=== PATIENT | female | born 2000 | race Caucasian/White ===

== ENCOUNTER 2019-10-01 10:18 | Emergency (ER) | payer BC, SELFPAY ==
[2019-10-01 10:30] VITALS: BP 122/75; PULSE 86; RESP 16; TEMP 36.9; O2SAT 99
--- NOTE | 2019-10-01 10:46 | ED.URI ---
HPI - URI/Sore Throat General Chief Complaint: Upper Respiratory Infection Stated Complaint: SORE THROAT/[place]/EARACHE Time Seen by Provider: 10/01/19 10:46 Source: patient Mode of arrival: ambulatory Limitations: no limitations History of Present Illness HPI Narrative: A 19 y/o female, who is a nonsmoker/nondrinker, presents to with c/o a sore throat for 1 week. She reports bilateral preceding earache, a cough, a wheeze, and rhinorrhea, followed by chills in the last couple days. Pt did not sleep well last night due to her pain. 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 Pt has a PMHx of asthma but does not use an inhaler. Pt has 1 dog and 1 cat at home but they do not sleep in the same bedroom. Pt's influenza immunization is UTD. Pertinent past history: asthma Onset (ago): week(s) (1) Related Data Home Medications Medication Instructions Recorded Confirmed ibuprofen 200 mg PO Q6H PRN 10/01/19 10/01/19 Allergies Allergy/AdvReac Type Severity Reaction Status Date / Time peanut Allergy Hives Verified 10/01/19 10:37 Review of Systems Review of Systems: Narrative: General/Constitutional: Denies: weight loss,fever Eyes: Denies: Redness,discharge Ears/Nose/Throat: Reports: sore throat, bilateral earache, rhinorrhea; Denies: Epistaxis,ear discharge Respiratory: Reports: cough, wheeze; Denies: Hemoptysis Gastrointestinal: Denies: Vomiting, Bleeding-rectal Skin: Denies: Lumps, eruption Neurologic: Denies: Focal Weakness,Sz Hematologic: Denies: Petechiae/Purpura Psychiatric: Denies: Suicidal ideation All systems reviewed & are unremarkable except as noted in HPI and below PMFSH Past Medical History Medical History (Updated 10/01/19 @ 11:11 by Kostas Mario MD) Asthma Social History Social History (Updated 10/01/19 @ 10:52 by [employer]) Smoking status: Never smoker Alcohol intake: never Comments No PCP on file. At time of signature, agree with nursing past medical, surgical, social and family history. There is no relevant family history pertinent to the presenting complaint Exam Narrative: Exam Narrative: General Appearance: Well appearing, Well nourished EYE: PERRLA, Conjunctiva clear Ears: Auditory canal normal, TM normal Nose: Rhinorrhea, Mucousal erythema Mouth/Throat: MM moist, Uvula midline, Pharyngeal erythema Neck: Supple, No adenopathy Respiratory: No respiratory distress, Breath sounds equal, Clear to auscultation Cardiovascular: RRR, No JVD Musculoskeletal: Non tender, Normal strength Skin: Warm, Dry Neurological: A&O x3, CN II-XII intact Psychiatric: Normal mood, Normal affect Course Vital Signs Vital signs: Vital Signs Temperature 98.4 F 10/01/19 10:30 Pulse Rate 86 10/01/19 10:30 Respiratory Rate 16 10/01/19 10:30 Blood Pressure 122/75 10/01/19 10:30 Pulse Oximetry 99 10/01/19 10:30 Temperature 98.4 F 10/01/19 10:30 Pulse Rate 86 10/01/19 10:30 Respiratory Rate 16 10/01/19 10:30 Blood Pressure 122/75 10/01/19 10:30 Pulse Oximetry 99 10/01/19 10:30 MDM - URI/Sore Throat Lab Data Labs: Influenza A Screen Negative Reference Range: Negative Influenza B Screen Negative Reference Range: Negative Strep Screen Presumptive Negative *(Reference Range: Negative)* Discharge Plan Discharge Clinical Impression: Influenza-like illness Patient Disposition: Home, Self-Care Condition: Stable Instructions: Antibiotic Form, Pharyngitis (ED) Prescriptions: New azithromycin 250 mg tablet See Rx Instructions .ROUTE .COMPLEX Qty: 6 RF: 0 Lidocaine Viscous 2 % solution 5 ml MUCOUS MEM QID PRN (Reason: pain) Qty: 100 RF: 0 oseltamivir [Tamiflu] 75 mg capsule 75 mg PO Q12H 5 Days Qty: 10 RF: 0 codeine-guaifenesin 10-100 mg/5 mL liquid 7.5 ml PO Q6H PRN (Reason: cough) Qty: 118 RF: 0 No Action ibuprofen 200
== END 2019-10-01 11:17 | disposition home or self-care (01) ==
PROVIDERS: Emergency Provider Emergency Medicine
DX: J02.9 Acute pharyngitis, unspecified (principal); H92.03 Otalgia, bilateral; J34.89 Other specified disorders of nose and nasal sinuses; R05 Cough; J45.909 Unspecified asthma, uncomplicated
CPT/HCPCS: 87081; 87804; 87880; 99213; G0463

== ENCOUNTER 2019-10-28 12:27 | Emergency (ER) | payer BC, SELFPAY ==
--- NOTE | ~2019-10-28 | XR_ITS ---
EXAMINATION: XR chest 2V DATE: 10/28/2019 13:27 INDICATION: Chest pain. Shortness of breath. TECHNIQUE: Frontal and lateral views of the chest were obtained. COMPARISON: Chest single view 08/03/2019 FINDINGS: The chest demonstrates clear lungs without pneumonia, pleural effusion, or pneumothorax. Th e heart size is normal. IMPRESSION: 1. No acute cardiopulmonary disease. Reviewed, dictated and finalized at location A.
[2019-10-28 12:31] VITALS: BP 149/97; PULSE 93; RESP 18; TEMP 36.4; O2SAT 100
--- NOTE | 2019-10-28 12:37 | ECG_ITS ---
Measurements Intervals [place] Rate: 90 P: 47 CT: 146 QRS: 15 QRSD: 84 T: 51 QT: 336 QTc: 411 Interpretive Statements SINUS RHYTHM BASELINE ARTIFACT- V4 NORMAL ECG Electronically Signed On 10-28-2019 13:01:15 CDT by Jonh Andres D.O.
--- NOTE | 2019-10-28 12:54 | ED.ARRPALP ---
HPI - Arrhythmia/Palpitations General Chief Complaint: Arrhythmia/Palpitations Stated Complaint: palpitations Time Seen by Provider: 10/28/19 12:41 Source: patient Mode of arrival: ambulatory Limitations: no limitations History of Present Illness HPI narrative: A 19 y/o female pt presents to the ED, with c/o heart palpitations, chest fullness , and constant chest pressure x 1 week. She notes that her CP was mid-sternal and radiated to the lt side of her chest, but is now only mid-sternal in the ED. Pt denies any aggrivating or alleviating factors. Pt states she was recently Dx with influenza A, strep throat, and bronchitis over the past month that she was prescribed Zithromax Z-Jarod x 2, and Tamiflu for. She notes that when she stands up her HR jumps, and when resting her HR was 110-120, but her HR is now back to normal range when resting. Pt reports having chills earlier today that has now subsided, fatigue, generalized weakness, and nausea when eating, but denies fever, sweats, or SOB. She states that she has been drinking a lot of fluids and eating a lot of ice. Pt denies PMHx of anxiety, thyroid problems, or anemia. Her PCP is Bello Wall MD complaint: heart racing and palpitations Onset (ago): week(s) (1) Duration: constant (chest pressure ) and intermittent (chest fullness ) Context: other (Dx with Influenza A, Strep throat, Bronchitis) Associated symptoms: chest pain ( pressure , fullness ), nausea (when eating) and other (generalized weakness, fatigue) Treatments prior to arrival: other (Tamiflu, Zithromax Z-Jarod) Related Data Allergies Allergy/AdvReac Type Severity Reaction Status Date / Time peanut Allergy Anaphylaxis Verified 10/28/19 12:34 Review of Systems Review of Systems: All systems reviewed & are unremarkable except as noted in HPI and below Constitutional: Constitutional: Reports chills (subsided), Denies excessive sweating, Reports fatigue, Denies fever(s) and Reports weakness (generalized) Cardiovascular: Cardiovascular: Reports chest pain (mid-sternal pressure , fullness ) and Reports palpitations ( heart rate jumps when standing up ) Respiratory: Respiratory: Denies dyspnea Gastrointestinal: Gastrointestinal: Reports nausea (when eating) PMFSH Past Medical History Medical History No significant past medical history Surgical History Surgical History Surgical history unknown Social History Social History (Updated 10/28/19 @ 15:54 by Rocael Block MD) Social History: nonsmoker Gender identity (if verbalized by the patient): Female Exam Narrative: Exam Narrative: GENERAL: Well-appearing, well-nourished, and in no acute distress. HEAD: Normocephalic, atraumatic. ENT: Mucous membranes moist. CHEST: Clear to auscultation. No respiratory distress. HEART: Regular rate and rhythm. Normal peripheral pulses. ABDOMEN: Soft, nontender, nondistended. EXTREMITIES: Normal range of motion. No edema. SKIN: Warm, dry, no rash. NEURO: Alert and oriented x3. Course Course Emergency Course: Unremarkable evaluation. Discharge home. Symptoms may be related to esophagitis/reflux from medications been taking or from anxiety or combination thereof. Recommend follow-up with PCP. Vital Signs Vital signs: Vital Signs Temperature 97.5 F L 10/28/19 12:31 Pulse Rate 93 10/28/19 12:31 Respiratory Rate 18 10/28/19 12:31 Blood Pressure 149/97 H 10/28/19 12:31 Pulse Oximetry 100 10/28/19 12:31 Temperature 97.5 F L 10/28/19 12:31 Pulse Rate 81 10/28/19 14:19 Respiratory Rate 18 10/28/19 14:19 Blood Pressure 107/90 10/28/19 14:19 Pulse Oximetry 100 10/28/19 14:19 MDM - Arrhythmia/Palpitations Lab Data Result diagrams: 10/28/19 13:13 10/28/19 13:51 Labs: Lab Results 10/28/19 10/28/19 10/28/19 Range/Units 13:13 13:13 1
[2019-10-28 13:18] VITALS: BP 107/69; PULSE 77; RESP 15; O2SAT 100
[2019-10-28 13:20] LABS: Basophils Percent Auto 0.6 % (0.2-1.2); Eosinophils Absolute Auto 0.1 K/mm3 (0-0.3); Eosinophils Percent Auto 1.1 % (0-4.4); Hemoglobin 12.8 g/dL (12.0-15.0); Immature Granulocyte Absolute 0.01 K/mm3 (0.00-0.031); Immature Granulocyte Percent A 0.2 % (0-0.5); Lymphocytes Absolute Auto 2.41 K/mm3 (0.9-3.2); Lymphocytes Percent Auto 51.5 % (18.3-44.2); Mean Corpuscular HGB Conc 33.7 g/dl (32-36); Mean Corpuscular Hemoglobin 29.7 pg (26-34); Mean Corpuscular Volume 88.2 fl (80-100); Mean Platelet Volume 11.2 fl (7.4-10.4); Monocytes Absolute Auto 0.5 K/mm3 (0.1-0.6); Monocytes Percent Auto 10.7 % (2.6-8.5); Neutrophils Absolute Auto 1.7 K/mm3 (1.3-6.7); Neutrophils Percent Auto 35.9 % (45.5-73.1); Platelet Count Result 210 k/mm3 (150-375); Red Blood Count 4.31 M/mm3 (4.2-5.4); Red Cell Distribution Width 11.9 % (11.5-14.5); White Blood Count 4.7 K/mm3 (4.5-10.0)
[2019-10-28 13:35] LABS: D Dimer 0.47 ug/mL (<0.48)
[2019-10-28 14:09] LABS: Blood Urea Nitrogen 12 mg/dL (7-17); Calcium 8.9 mg/dL (8.4-10.2); Carbon Dioxide 27 mmol/L (22-30); Chloride 103 mmol/L (98-107); Estimated CRCL calculation 112 ml/min; Estimated Glomerular Filt Rate > 60; Glucose 79 mg/dL (65-105); Potassium 3.4 mmol/L (3.4-5.0); Sodium 139 mmol/L (137-145)
[2019-10-28 14:19] VITALS: BP 107/90; PULSE 81; RESP 18; O2SAT 100
[2019-10-28 14:20] LABS: Troponin I < 0.012 ng/mL (0.000-0.034)
[2019-10-28 16:09] VITALS: BP 110/66; PULSE 70; RESP 16; O2SAT 100
== END 2019-10-28 16:10 | disposition home or self-care (01) ==
PROVIDERS: Emergency Provider Emergency Medicine
DX: R00.2 Palpitations (principal); R07.89 Other chest pain
CPT/HCPCS: 36415; 71046; 80048; 84443; 84484; 85025; 85380; 93005; 99284

== ENCOUNTER 2020-06-29 23:45 | Emergency (ER) | payer BC, SELFPAY ==
[2020-06-29 23:49] VITALS: BP 138/78; PULSE 82; RESP 18; TEMP 35.9; O2SAT 99
[2020-06-30 01:42] LABS: Add Urine Microscopic? YES; Appearance Urine Clear (Clear); Bilirubin Urine Negative (Negative); Blood Urine 3+ (Negative); Color Urine Straw (Yellow); Glucose Urine UA Negative (Negative); Ketones Urine Negative (Negative); Leukocyte Esterase Ur 3+ LEU/UL (Negative); Mucus Urine Rare /lpf; Nitrate Urine Negative (Negative); Protein Urine 1+ mg/dL (Negative); RBC Urine >75 /hpf (0-2); Squamous Epithelial Cell Urine Rare /hpf (Few); Urobilinogen Urine Negative mg/dL (<2.0)
--- NOTE | 2020-06-30 01:57 | ED.FEMALEGU ---
HPI - Female Genitourinary General Chief complaint: Urogenital-Female Stated complaint: unable to pee Time Seen by Provider: 06/30/20 00:17 Source: patient Mode of arrival: ambulatory Limitations: no limitations History of Present Illness HPI Narrative: This patient is a 20 year old female who presents for evaluation of difficulty urinating. She states just prior to arrival she felt the urge to urinate but she could not so she came to the ER. She was able to urinate here, but she states she still feels lower abdominal pressure to urinate. She also reports pain to urine. She denies hematuria, fever, chills, nausea, vomiting , back pain or abdominal pain. She denies history of UTI. Related Data Allergies Allergy/AdvReac Type Severity Reaction Status Date / Time peanut Allergy Anaphylaxis Verified 06/29/20 23:51 Review of Systems Review of Systems: All systems reviewed & are unremarkable except as noted in HPI and below PMFSH Past Medical History Medical History (Updated 06/30/20 @ 02:01 by Yecenia Scott MD) Asthma No significant past medical history Surgical History Surgical History Surgical history unknown Social History Social History (System 11/10/19 @ 16:09 by Marie Mariscal) Social History: nonsmoker Smoking status: Never smoker Alcohol intake: never Gender identity (if verbalized by the patient): Female Sexual Orientation (if Verbalized by the Patient): Straight or Heterosexual Exam Const: General: alert Orientation/consciousness: patient oriented x3 HENMT: Head: normocephalic and atraumatic General nose exam: No nasal polyps present Face and sinus: face symmetric Mouth: Yes Normal oral and palatal mucosa present, Yes lip normal, Yes oropharynx normal and Yes moist mucous membranes Eyes: EOM: EOMs intact bilaterally Cardio: Rate: regular rate Rhythm: regular rhythm Heart sounds: no murmurs GI: GI Palp: Yes Soft to palpation, No Tenderness to palpation present (GI), No Guarding due to palpation present (GI) and No Rigid due to palpation Auscultation: normal bowel sounds : General: Yes no CVA tenderness Skin: General skin exam: normal color Rashes: no rashes Neuro: General: patient oriented x3 and moves all extremities Psych: Mental Status: mental status grossly normal Affect: normal affect Course Vital Signs Vital signs: Vital Signs Temperature 96.7 F L 06/29/20 23:49 Pulse Rate 82 06/29/20 23:49 Respiratory Rate 18 06/29/20 23:49 Blood Pressure 138/78 06/29/20 23:49 Pulse Oximetry 99 06/29/20 23:49 Temperature 96.7 F L 06/29/20 23:49 Pulse Rate 82 06/29/20 23:49 Respiratory Rate 18 06/29/20 23:49 Blood Pressure 138/78 06/29/20 23:49 Pulse Oximetry 99 06/29/20 23:49 MDM - Female Genitourinary Lab Data Attestation: I reviewed the patient's lab results. Labs: Lab Results 06/30/20 Range/Units 01:14 Urine Color Straw (Yellow) Urine Appearance Clear (Clear) Urine pH 6.0 (5.0-9.0) Ur Specific [place] 1.010 (1.001-1.035) Urine Protein 1+ H (Negative) mg/dL Urine Glucose (UA) Negative (Negative) mg/dL Urine Ketones Negative (Negative) mg/dL Ur Blood (Man) 3+ H (Negative) Urine Nitrate Negative (Negative) Urine Bilirubin Negative (Negative) Urine Urobilinogen Negative (<2.0) mg/dL Leukocyte Esterase Rfl 3+ H (Negative) REE/UL Urine RBC >75 H (0-2) /hpf Urine WBC 10-15 H /hpf Ur Squamous Epith Cells Rare (Few) /hpf Urine Mucus Rare /lpf UCG Bedside Result Negative Reference Range: Negative Discharge Plan Discharge Clinical Impression: Urinary tract infection Qualifiers: Urinary tract infection type: site unspecified Hematuria presence: with hematuria Qualified Code(s): N39.0 - Urinary tract infection, site not specified Franky
[2020-06-30] MEDS: CEPHALEXIN 500 MG CAPSULE PO (02:15)
== END 2020-06-30 02:20 | disposition home or self-care (01) ==
PROVIDERS: Emergency Provider General Practice
DX: N39.0 Urinary tract infection, site not specified (principal); R31.9 Hematuria, unspecified; J45.909 Unspecified asthma, uncomplicated
CPT/HCPCS: 81001; 81025; 87077; 87086; 87088; 87186; 99283; A9270

== ENCOUNTER 2020-09-11 12:18 | Emergency (ER) | payer BC, SELFPAY ==
[2020-09-11 12:24] VITALS: BP 116/84; PULSE 106; RESP 12; TEMP 36.6; O2SAT 99
--- NOTE | 2020-09-11 12:24 | ED.GENADULT ---
HPI - General Adult General Chief complaint: Upper Respiratory Infection Stated complaint: COUGH/SORE THROAT/EARACHE/HEADACHE Source: patient and RN notes reviewed Mode of arrival: ambulatory Limitations: no limitations History of Present Illness HPI narrative: 20-year-old female presents with complaints of sore throat, right otalgia, dry cough, fatigue, intermittent headache (not the worst of her life) for the past 7 days. Maricruz reports she sought care at a local urgent care 2 days ago, had a negative COVID-19 otherwise no other treatment, symptoms continue. No high fevers, drooling, neck or throat swelling. Pain is bilateral. Rhinorrhea and nasal congestion. No voice change. No nausea, vomiting, or abdominal pain. Tolerating liquids well. Denies dyspnea, difficulty swallowing, jaw pain, dental pain, facial pain, foreign body sensation, and rash. LMP 08/19/20. Remains active. The patient reports she have not been diagnosed with COVID-19. The patient reports she is not waiting for the results of a COVID-19 lab test. The patient reports she do not have chills, weakness, or myalgia. The patient reports she do not have a worsening cough or shortness of breath. Denies chest pain. The patient reports she do not have any loss of taste or smell or diarrhea. Denies recent traveling. Denies concerns for COVID-19 or exposures been home with limited outdoor exposure except for essential household needs and return home. At this time, patient is not suspected of having COVID-19. Some parts of this dictation were generated by voice recognition software and may contain typographical and/or grammatical inaccuracies. Related Data Allergies Allergy/AdvReac Type Severity Reaction Status Date / Time peanut Allergy Anaphylaxis Verified 06/29/20 23:51 Review of Systems Review of Systems: Narrative: CONSTITUTIONAL: Denies fever, chills, sweats. Complains of fatigue. EYES: Denies visual changes, redness, discharge. ENT: Complains of rhinorrhea, otalgia, sore throat, congestion. CARDIOVASCULAR: Denies chest pain, palpitations, edema. RESPIRATORY: Denies dyspnea, wheezing. Complains of cough. GASTROINTESTINAL: Denies abdominal pain, nausea, vomiting, diarrhea. GENITOURINARY: Denies dysuria, hematuria, abnormal discharge. SKIN: Denies rash or itching. MUSCULOSKELETAL: Denies acute back pain, joint pain, or myalgia. NEUROLOGIC: Denies numbness or focal weakness. Complains of intermittent WEEKS. PSYCHIATRIC: Denies anxiety or depression. All systems reviewed & are unremarkable except as noted in HPI and below. [facility] Past Medical History Medical History (Updated 09/12/20 @ 00:00 by Chemo Dagabe) Appendicitis Knee pain Surgical History Surgical History (Updated 09/11/20 @ 13:50 by OSMAN Gonzalez) History of arthroscopic knee surgery Right Hx of appendectomy No significant past surgical history Family History Family History (Updated 09/11/20 @ 13:51 by OSMAN Gonzalez) Father Diabetes mellitus Mother Alive and well Sibling Diabetes mellitus Social History Social History (Updated 09/11/20 @ 13:52 by OSMAN Gonzalez) Social History: nonsmoker Smoking status: Never smoker Tobacco type: cigarettes Second hand tobacco smoke exposure: No Alcohol intake: current Substance use: never Substance use type: does not use Living arrangements: alone Occupation/Education: occupation Gender identity (if verbalized by the patient): Female Sexual Orientation (if Verbalized by the Patient): Straight or Heterosexual Comments At time of signature, agree with nurse past medical, surgical, social, and family history. There is no relevant family history pertinent to the presenting complaint. Exam Narrative: Exam Narrative: GENERAL: This is a well-nourished, well-developed patient, in no apparent distress. Speaks in full sentences without deficits and ambulates with steady gait wi
== END 2020-09-11 13:06 | disposition home or self-care (01) ==
PROVIDERS: Emergency Provider Nurse Practitioner Family
DX: J40 Bronchitis, not specified as acute or chronic (principal); J02.9 Acute pharyngitis, unspecified
CPT/HCPCS: 87081; 87804; 87880; 99213; G0463